=== PATIENT | male | born 1995 | race Caucasian/White ===

== ENCOUNTER 2023-12-18 13:44 | Emergency (ER) | payer OTHER, SELFPAY ==
[2023-12-18 13:46] VITALS: BP 157/95
--- NOTE | 2023-12-18 15:34 | ED.GENMED ---
History of Present Illness
General
Chief Complaint: Musculo-Skeletal Complaint
Source: patient
Exam Limitations: none
Time Seen by Provider: 12/18/23 15:07
Nursing documentation reviewed up to this point in time: agreed with
History of Present Illness
History of Present Illness:
Patient is a 28-year-old male who presents to the ER for evaluation. Patient was playing baseball earlier this afternoon and was running when he felt a pull in his right hamstring. He felt a pull and felt like the muscle moved. He is able to bear
weight but does have discomfort. He denies any other injuries.
Past History
Past History
ED Past Medical History: None
ED Past Surgical History: None
Review of Systems
Review of Systems
Allergies reviewed?: Yes
All Other Systems: ROS reviewed and negative except as documented in HPI and ROS
Constitutional: Reports no symptoms
Musculoskeletal: Reports other (right leg pain )
Skin: Reports no symptoms
Psychiatric: Reports no symptoms
Phy Exam
General Physical Exam
General Presentation: no apparent distress
General age: appears stated age
General Skin: warm and dry
General Habitus: normal
General Mental: alert
General Hydration: appears well hydrated
Neurological Exam
Neurological Exam: alert and oriented x3
Musculoskeletal Exam
Musculoskeletal Exam: other (Strong pulses to right lower extremity no obvious deformity palpated or visualized good strength good flexion extension at knee full range of motion to hip mildly tender to posterior right upper hamstring distal to
buttock)
Skin Exam
Skin Exam: normal color and warm/dry
Psychiatric Exam
Psychiatric Exam: normal mood/affect
Course
Vital Signs
Initial and Last Documented VS:
Initial Vital Signs
Temp Pulse Resp BP Pulse Ox
97.9 F 113 16 157/95 95
12/18/23 13:46 12/18/23 13:46 12/18/23 13:46 12/18/23 13:46 12/18/23 13:46
Last Documented Vital Signs
Temp Pulse Resp BP Pulse Ox
97.9 F 88 20 151/94 97
12/18/23 13:46 12/18/23 16:02 12/18/23 16:02 12/18/23 16:02 12/18/23 16:02
MDM/Problems Addressed
Differential Diagnosis Includes:
Not limited to hamstring tear sprain
MDM/Problems Addressed:
Symptoms are consistent with hamstring muscle muscle tendon injury no obvious deformity on exam and patient is able to weight likely muscle strain will d/c w/ nsaids/ice/immobilizer/crutches
*Critical Care Note
Total Time (30-74mins, 75-104mins- exclusive of procedures): Not Applicable
ED Attending Note
-
Portions of this chart may have been created with voice recognition software.� Occasional wrong word or��sound alike� substitutions may have occurred due to the inherent limitations of voice recognition software.
Discharge Plan
Departure
Patient Disposition: Home (Routine Discharge)
Date of Disposition: 12/18/23
Time of Disposition: 15:52
Patient with high blood pressure during this ER visit?: Yes
Condition: Fair
Covid-19: Not Applicable
Discharge Problem:
Hamstring strain
Instructions: How to Use Crutches, Ibuprofen
Prescriptions:
No Action
Advil
2 tab PO
Multivitamin
1 tab PO DAILY
Vitamin E
1 cap PO DAILY
acetaminophen-codeine 300 MG/30 MG tablet
1 tab PO Q4HPRN PRN (Reason: pain) Qty: 12 0RF
Referrals:
Arturo Elizalde MD [Active] -
Activity Restrictions/Additional Instructions:
As discussed do not bear weight on leg until you are seen by orthopedics use crutches. Ice the affected area for the first 24 hours 20 minutes at a time several times a day. Ibuprofen 600 mg every hours with food. You may wear immobilizer for
support do not sleep with this. Return if any worsening of symptoms. Call orthopedics tomorrow for appointment next 2 days.
Interventions
Interventions:
*Risk Screen - Suicide Last Done: 12/18/23 16:02
*General Assessment Last Done: 12/18/23 16:02
*Neglect/Abuse Screening Last Done: 12/18/23 16:02
ED- Fall Risk Assessment Last Done: 12/18/23 16:10
*ED COVID-19 Vaccine History Last Done: 12/18/23 16:02
*Nursing Disposition Last Done: 12/18/23 16:10
ED-Musculoskeletal Assessment Last Done: 12/18/23 16:02
Discharge Date and Time
Discharge Date/Time: 12/18/23 16:11
Print Language: ROMANIAN
[2023-12-18 16:02] VITALS: BP 151/94
== END 2023-12-18 16:11 | disposition home or self-care (01) ==
LOC: EMR 13:44
PROVIDERS: EMERGENCY PHYSICIAN Emergency Medicine
DX: S76.311A Strain of muscle, fascia and tendon of the posterior muscle group at thigh level, right thigh, initial encounter (principal); X50.1XXA Overexertion from prolonged static or awkward postures, initial encounter
CPT/HCPCS: 99282; 29505